=== PATIENT | male | born 1945 | race Caucasian/White ===

== ENCOUNTER 2016-11-11 14:54 | Inpatient (IN) | payer MEDICAID, MEDICARE ==
[~2016-11-11] VITALS: Ht 170.2 cm; Wt 100.4 kg
[~2016-11-11 14:54] MED LIST: CLON0.3T PO; FURO10SO PO; GABA-326 PO; GLIP5TAB11 PO; INSU100C6 SQ; LEVO137T24 PO; LIRA0.6P2 SQ; LOSA50TA37 PO; METF850T2 PO; OMEP20CA10 PO; SERT20OR5 PO; SOTA120T PO; TRAZ-144 PO
[2016-11-11] MEDS ORDERED: INSLAN SQ (15:21)
[2016-11-11 15:37] LABS: GLUCOSE,POINT OF CARE 140 MG/DL (70-110)
[2016-11-11 16:51] LABS: BASOPHILS % (AUTO) 0.6 % (0.0-2.0); EOSINOPHILS % (AUTO) 0.6 % (1.0-6.0); HEMATOCRIT 37.4 % (41-53); HEMOGLOBIN 12.4 g/dL (13.5-17.5); LYMPHOCYTES # (AUTO) 1.1 K/uL (1.0-4.8); LYMPHOCYTES % (AUTO) 25.4 % (22.0-44.0); MEAN CORPUSCULAR HEMOGLOBIN 28.3 pg (26.0-34.0); MEAN CORPUSCULAR VOLUME 86 fL (80-100); MONOCYTES # (AUTO) 0.7 K/uL (0.1-1.0); MONOCYTES % (AUTO) 16.5 % (2.0-9.0); NEUTROPHILS # (AUTO) 2.4 K/uL (1.8-7.7); NEUTROPHILS % (AUTO) 56.9 % (40.0-70.0); PLATELET COUNT (AUTO) 142 K/uL (150-450); RED BLOOD CELL COUNT(AUTO) 4.37 MIL/uL (4.50-5.90); RED CELL DISTRIBUTION WIDTH 13.4 % (11.5-14.5); WHITE BLOOD COUNT (AUTO) 4.2 K/uL (4.5-11.0)
[2016-11-11 17:02] LABS: ANION GAP 10 mmol/L (8-16); CALCIUM, TOTAL 9.1 mg/dL (8.8-10.5); CARBON DIOXIDE 32 mmol/L (22-29); CHLORIDE 102 mmol/L (98-107); CREATININE 1.21 mg/dL (0.60-1.30); GLOMERULAR FILTR. RATE CALC 59 mL/min (>60); POTASSIUM 3.5 mmol/L (3.5-5.1); SODIUM SERUM 144 mmol/L (136-145); UREA NITROGEN, BLOOD 18 mg/dL (7-18)
[2016-11-11 17:16] LABS: ALANINE AMINOTRANSFERASE 27 U/L (12-78); ALBUMIN 3.9 g/dL (3.4-5.0); ASPARTATE AMINOTRANSFERASE 23 U/L (15-37); BILIRUBIN,TOTAL 0.4 mg/dL (0.1-1.0); TOTAL PROTEIN, SERUM 7.9 g/dL (6.4-8.2)
[2016-11-11] MEDS ORDERED: LORazepam 2 MG TABLET PO PRN (17:45)
[2016-11-11] MEDS ORDERED: ZOLPIDEM TARTRATE 10 MG TABLET PO PRN (17:45)
[2016-11-11] MEDS ORDERED: HALOPERIDOL 5 MG TABLET PO PRN (17:45)
[2016-11-11] MEDS ORDERED: DEXTROSE 50%-WATER 25 GM/50 ML SYRINGE IVP PRN (22:15)
[2016-11-11] MEDS ORDERED: INSULIN ASPART 100 UNITS/ML SQ PRN (22:15)
[2016-11-11 22:54] VITALS: BP 124/67
[2016-11-12] MEDS: LEVOTHYROXINE SODIUM 137 MCG TABLET PO SCH (06:56)
[2016-11-12 08:05] VITALS: BP 160/70
[2016-11-12] MEDS: MetFORMIN HCL 850 MG TABLET PO SCH ×2 (08:59→16:28)
[2016-11-12] MEDS: OMEPRAZOLE 20 MG CAPSULE PO SCH (08:59)
[2016-11-12] MEDS: GlipiZIDE 10 MG TABLET PO SCH ×2 (08:59→16:28)
[2016-11-12] MEDS: GABAPENTIN 400 MG CAPSULE PO SCH ×2 (09:00→16:28)
[2016-11-12] MEDS: LOSARTAN POTASSIUM 50 MG TABLET PO SCH (09:00)
[2016-11-12] MEDS: FUROSEMIDE 80 MG TABLET PO SCH (09:00)
[2016-11-12] MEDS: SOTALOL HCL 80 MG TABLET PO SCH (09:01)
[2016-11-12] MEDS ORDERED: LEVOTHYROXINE SODIUM 137 MCG TABLET PO SCH (11:30)
[2016-11-12] MEDS: SERTRALINE HCL 100 MG TABLET PO SCH (12:15)
[2016-11-12 16:46] LABS: GLUCOSE COMMENT 1 Received Meds; GLUCOSE,POINT OF CARE 74 MG/DL (70-110)
[2016-11-12 18:01] VITALS: BP 144/92
[2016-11-12 20:43] LABS: GLUCOSE,POINT OF CARE 269 MG/DL (70-110)
[2016-11-12] MEDS ORDERED: TraZODone HCL 50 MG TABLET PO SCH (21:00)
[2016-11-13 05:57] LABS: GLUCOSE,POINT OF CARE 132 MG/DL (70-110)
[2016-11-13 06:55] LABS: HEMOGLOBIN A1C 8.2 % (4.5-6.2)
[2016-11-13] MEDS: GlipiZIDE 10 MG TABLET PO SCH (07:00)
[2016-11-13] MEDS: MetFORMIN HCL 850 MG TABLET PO SCH (07:05)
[2016-11-13] MEDS: LEVOTHYROXINE SODIUM 137 MCG TABLET PO SCH (07:05)
[2016-11-13 07:27] LABS: CHOL/HDL RATIO 4.4 (4.2-7.3); CREATINE KINASE, TOTAL 56 U/L (39-308); THYROID STIMULATING HORMONE 0.02 uIU/mL (0.36-3.74)
[2016-11-13 08:00] VITALS: BP 129/68
[2016-11-13] MEDS ORDERED: INSULIN GLARGINE,HUM.REC.ANLOG 100 UNITS/ML SQ SCH (09:00)
[2016-11-13] MEDS: LOSARTAN POTASSIUM 50 MG TABLET PO SCH (09:04)
[2016-11-13] MEDS: FUROSEMIDE 80 MG TABLET PO SCH (09:05)
[2016-11-13] MEDS: GABAPENTIN 400 MG CAPSULE PO SCH (09:05)
[2016-11-13] MEDS: OMEPRAZOLE 20 MG CAPSULE PO SCH (09:05)
[2016-11-13] MEDS: SOTALOL HCL 80 MG TABLET PO SCH (09:05)
[2016-11-13] MEDS: SERTRALINE HCL 100 MG TABLET PO SCH (09:05)
[2016-11-13 11:37] LABS: GLUCOSE COMMENT 1 Received Meds; GLUCOSE,POINT OF CARE 267 MG/DL (70-110)
[2016-11-13] MEDS ORDERED: HydrALAZINE HCL 10 MG TABLET PO PRN (12:15)
[2016-11-14] MEDS ORDERED: LEVOTHYROXINE SODIUM 50 MCG TABLET PO SCH (07:00)
== END 2016-11-13 15:30 | disposition home or self-care (01) | DRG 885 ==
LOC: EMS 14:56 → 3EX 18:10
DX: F33.2 Major depressive disorder, recurrent severe without psychotic features (principal); R45.851 Suicidal ideations; C19 Malignant neoplasm of rectosigmoid junction; D61.818 Other pancytopenia; I50.9 Heart failure, unspecified; I11.0 Hypertensive heart disease with heart failure; E11.40 Type 2 diabetes mellitus with diabetic neuropathy, unspecified; E03.9 Hypothyroidism, unspecified; K21.9 Gastro-esophageal reflux disease without esophagitis; Z95.0 Presence of cardiac pacemaker; Z79.899 Other long term (current) drug therapy; Z79.4 Long term (current) use of insulin; Z79.84 Long term (current) use of oral hypoglycemic drugs; Z90.49 Acquired absence of other specified parts of digestive tract; Z83.3 Family history of diabetes mellitus; Z82.49 Family history of ischemic heart disease and other diseases of the circulatory system; Z91.19 Patient's noncompliance with other medical treatment and regimen
CPT/HCPCS: 82306; 82607; 82746; 82962; 83036; 83735; 84439; 84443; 86592; 93005; 99285; G0480; J1815